=== PATIENT | female | born 1950 | race Caucasian/White ===

== ENCOUNTER 2017-04-10 03:09 | Emergency (ER) | payer MEDICARE, OTHER ==
[~2017-04-10] VITALS: Ht 157.5 cm; Wt 65.8 kg
[2017-04-10] MEDS ORDERED: PREDNISONE20 MG PO (04:25)
[2017-04-10] MEDS ORDERED: ASMANEX110 MC1 INH (04:26)
[2017-04-10] MEDS ORDERED: PROAIR HFA8.5 GM INH (04:27)
[2017-04-10] MEDS ORDERED: NASACORT16.9 ML NASBOTH (04:28)
[2017-04-10] MEDS ORDERED: ZYRTEC10 MG PO (04:28)
[2017-04-10] MEDS ORDERED: ATARAX25 MG PO (04:30)
[2017-04-10] MEDS ORDERED: SYNTHROID88 MCG PO (04:30)
[2017-04-10] MEDS ORDERED: NORVASC5 MG PO (04:31)
[2017-04-10] MEDS ORDERED: WELLBUTRIN XL300 MG PO (04:31)
[2017-04-10] MEDS ORDERED: RESTORIL30 MG PO (04:32)
[2017-04-10] MEDS ORDERED: PROTONIX40 MG PO (04:32)
[2017-04-10] MEDS ORDERED: CERTAVITE SR-AN1 TAB PO (04:32)
[2017-04-10] MEDS ORDERED: VITAMIN D3400 UNI1 PO (04:33)
[2017-04-10] MEDS ORDERED: HYDROCODON-ACE1 EAC4 PO (04:37)
== END 2017-04-10 06:38 | disposition short-term general hospital (02) ==
LOC: ER 03:09
DX: R06.02 Shortness of breath (principal); R05 Cough; K21.9 Gastro-esophageal reflux disease without esophagitis; E55.9 Vitamin D deficiency, unspecified; E03.9 Hypothyroidism, unspecified; I10 Essential (primary) hypertension; F41.9 Anxiety disorder, unspecified; J45.909 Unspecified asthma, uncomplicated; Z79.899 Other long term (current) drug therapy; Z79.891 Long term (current) use of opiate analgesic; Z88.1 Allergy status to other antibiotic agents; Z88.8 Allergy status to other drugs, medicaments and biological substances; Z88.5 Allergy status to narcotic agent; Z88.7 Allergy status to serum and vaccine; Z90.11 Acquired absence of right breast and nipple; Z85.3 Personal history of malignant neoplasm of breast; Z87.891 Personal history of nicotine dependence